=== PATIENT | male | born 1955 ===

== ENCOUNTER 2017-07-19 16:02 | Emergency (ER) | payer MEDICAID | END 2017-07-19 17:43 | disposition home or self-care (01) | LOC: FTE 16:02 | DX: S51.812A Laceration without foreign body of left forearm, initial encounter (principal); W50.3XXA Accidental bite by another person, initial encounter; Y92.009 Unspecified place in unspecified non-institutional (private) residence as the place of occurrence of the external cause | CPT/HCPCS: 99284; Z7502 ==